=== PATIENT | male | born 1965 | race Two or more races ===

== ENCOUNTER 2022-04-04 22:25 | Emergency (ER) | payer OTHER ==
[~2022-04-04] VITALS: Ht 172.7 cm; Wt 68.0 kg
[2022-04-04] MEDS ORDERED: PANTOPRAZOLE SO40 MG PO (23:31)
[2022-04-04] MEDS ORDERED: LORAZEPAM2 MG PO (23:31)
[2022-04-04] MEDS ORDERED: LEVOTHYROXINE112 MCG PO (23:31)
[2022-04-04] MEDS ORDERED: BIKTARVY 50-201 EACH PO (23:32)
[2022-04-04] MEDS ORDERED: BACTRIM DS TAB1 EACH PO (23:32)
[2022-04-04] MEDS ORDERED: ABANEU-SL TABL1 EACH SL (23:33)
[2022-04-04] MEDS ORDERED: MULTIVITAMIN1 EACH PO (23:33)
[2022-04-04] MEDS ORDERED: B12-FOLIC ACID1 EACH PO (23:33)
[2022-04-05] MEDS ORDERED: ULTRAM50 MG PO (05:36)
== END 2022-04-05 05:47 | disposition home or self-care (01) ==
LOC: ER 22:25
DX: R10.31 Right lower quadrant pain (principal); M54.9 Dorsalgia, unspecified; Z88.8 Allergy status to other drugs, medicaments and biological substances; Z21 Asymptomatic human immunodeficiency virus [HIV] infection status; Z85.9 Personal history of malignant neoplasm, unspecified; K57.30 Diverticulosis of large intestine without perforation or abscess without bleeding; K74.60 Unspecified cirrhosis of liver; I85.00 Esophageal varices without bleeding; I86.8 Varicose veins of other specified sites